=== PATIENT | female | born 1985 | race Caucasian/White ===

== ENCOUNTER 2019-04-06 15:53 | Inpatient (IN) | payer OTHER ==
[~2019-04-06] VITALS: Ht 165.1 cm; Wt 93.9 kg
[~2019-04-06 15:53] MED LIST: CALC1TAB15 PO; DSS100 PO; IBUP-2070 PO; PREN-65 PO
[2019-04-06] MEDS ORDERED: OXYTOCIN 30 UNITS/LACT RINGERS 500 ML IV ONE (16:57)
[2019-04-06] MEDS ORDERED: RINGERS SOLUTION,LACTATED 1,000 ML IV PRN (16:57)
[2019-04-06] MEDS ORDERED: METHYLERGONOVINE MALEATE 0.2 MG/ML VIAL IM PRN (17:00)
[2019-04-06] MEDS ORDERED: FentaNYL CITRATE-PF 100 MCG/2 ML VIAL IVP PRN (17:00)
[2019-04-06] MEDS ORDERED: CITRIC ACID/SODIUM CITRATE 30 ML SOLUTION UDCUP PO PRN (17:00)
[2019-04-06] MEDS ORDERED: TERBUTALINE SULFATE 1 MG/ML VIAL SQ PRN (17:00)
[2019-04-06] MEDS ORDERED: METOCLOPRAMIDE HCL 5 MG/ML 2 ML VIAL IVP PRN (17:00)
[2019-04-06 17:13] VITALS: BP 110/68
[2019-04-06] MEDS ORDERED: DINOPROSTONE 10 MG VAGINAL SUPPOSITORY VG ONE (17:15)
[2019-04-06] MEDS ORDERED: PREN-217 PO (17:15)
[2019-04-06 17:28] LABS: BASOPHILS % (AUTO) 0.4 % (0.0-2.0); EOSINOPHILS % (AUTO) 0.7 % (1.0-6.0); HEMOGLOBIN 12.4 g/dL (12.0-16.0); LYMPHOCYTES # (AUTO) 1.7 K/uL (1.0-4.8); LYMPHOCYTES % (AUTO) 26.3 % (22.0-44.0); MEAN CORPUSCULAR HEMOGLOBIN 29.7 pg (26.0-34.0); MEAN CORPUSCULAR HGB CONC 33.4 G/dL (31.0-37.0); MEAN CORPUSCULAR VOLUME 89 fL (80-100); MONOCYTES # (AUTO) 0.6 K/uL (0.1-1.0); MONOCYTES % (AUTO) 8.7 % (2.0-9.0); NEUTROPHILS # (AUTO) 4.1 K/uL (1.8-7.7); NEUTROPHILS % (AUTO) 63.9 % (40.0-70.0); PLATELET COUNT (AUTO)-OB 150 K/uL (150-450); RED BLOOD CELL COUNT(AUTO) 4.16 MIL/uL (4.00-5.20); RED CELL DISTRIBUTION WIDTH 14.9 % (11.5-14.5)
[2019-04-06] MEDS: RINGERS SOLUTION,LACTATED 1,000 ML IV SCH ×2 (17:44→20:06)
[2019-04-06] MEDS ORDERED: OXYTOCIN 30 UNITS/LACT RINGERS 500 ML IV PRN (17:45)
[2019-04-06] MEDS ORDERED: DOCU-275 PO (18:04)
[2019-04-06] MEDS ORDERED: CALC-916 PO (18:04)
[2019-04-06] MEDS ORDERED: ROPIVACAINE HCL/PF 0.2% 100 ML ED ONE (19:51)
[2019-04-06] MEDS ORDERED: OXYGEN THERAPY IH SCH (20:00)
[2019-04-06] MEDS ORDERED: ROPIVACAINE HCL/PF 0.2% 100 ML ED PRN (20:10)
[2019-04-06] MEDS ORDERED: NALBUPHINE HCL 10 MG/ML VIAL IVP PRN (20:15)
[2019-04-06] MEDS ORDERED: DiphenhydrAMINE HCL 50 MG/ML VIAL IVP PRN (20:15)
[2019-04-06] MEDS ORDERED: ONDANSETRON HCL 4 MG/2 ML VIAL IVP PRN (20:15)
[2019-04-07] MEDS: RINGERS SOLUTION,LACTATED 1,000 ML IV SCH ×2 (02:57→04:21)
[2019-04-07] MEDS ORDERED: MINERAL OIL 30 ML UDCUP VG ONE (05:15)
[2019-04-07] MEDS ORDERED: OXYTOCIN 30 UNITS/LACT RINGERS 500 ML IV ONE (05:33)
[2019-04-07] MEDS ORDERED: CYCLOBENZAPRINE HCL 10 MG TABLET PO PRN (05:45)
[2019-04-07] MEDS ORDERED: GLYCERIN/WITCH HAZEL LEAF 40 PADS JAR TP PRN (05:45)
[2019-04-07] MEDS ORDERED: OxyCODONE HCL/ACETAMINOPHEN 5-325 MG TABLET PO PRN (05:45)
[2019-04-07] MEDS ORDERED: LANOLIN 7 GM OINTMENT TP PRN (05:45)
[2019-04-07] MEDS ORDERED: IBUPROFEN 800 MG TABLET PO PRN (05:45)
[2019-04-07] MEDS ORDERED: BENZOCAINE 20%/MENTHOL 56 GM SPRAY CANISTER TP PRN (05:45)
[2019-04-07] MEDS ORDERED: LIDOCAINE/PF 1% 30 ML VIAL INJ PRN (05:45)
[2019-04-07] MEDS ORDERED: HYDROCODONE/ACETAMINOPHEN 5-325 MG TABLET PO PRN (05:45)
[2019-04-07] MEDS ORDERED: LIDOCAINE/PF 2% 5 ML VIAL ONE (07:00)
[2019-04-07] MEDS ORDERED: ACETAMINOPHEN 1000 MG/ISO-OSM 100 ML IV ONE ×2 (08:40→16:22)
[2019-04-07] MEDS: ACETAMINOPHEN 1000 MG/ISO-OSM 100 ML IV SCH ×2 (08:43→16:23)
[2019-04-07] MEDS ORDERED: MORPHINE SULFATE 10 MG/ML SYRINGE IVP PRN (08:45)
[2019-04-07] MEDS ORDERED: ONDANSETRON HCL 4 MG/2 ML VIAL IVP PRN ×2 (08:45→13:45)
[2019-04-07] MEDS ORDERED: NALOXONE HCL 0.4 MG/ML VIAL IVP PRN (08:45)
[2019-04-07] MEDS ORDERED: FentaNYL CITRATE-PF 100 MCG/2 ML VIAL IVP PRN (08:45)
[2019-04-07] MEDS ORDERED: DiphenhydrAMINE HCL 50 MG/ML VIAL IVP PRN ×2 (08:45→13:45)
[2019-04-07] MEDS ORDERED: NALBUPHINE HCL 10 MG/ML VIAL IVP PRN ×3 (08:45→13:45)
[2019-04-07] MEDS: OxyCODONE HCL/ACETAMINOPHEN 5-325 MG TABLET PO PRN (11:26)
[2019-04-07] MEDS ORDERED: ROPIVACAINE HCL/PF 0.2% 100 ML ED PRN (13:39)
[2019-04-07] MEDS: KETOROLAC TROMETHAMINE 30 MG/ML VIAL IVP SCH ×2 (14:02→21:13)
[2019-04-07] MEDS ORDERED: OXYGEN THERAPY IH SCH ×2 (20:00)
[2019-04-07] MEDS: MAGNESIUM HYDROXIDE SUSPENSION 30 ML UDCUP PO PRN (21:13)
[2019-04-08] MEDS: OxyCODONE HCL/ACETAMINOPHEN 5-325 MG TABLET PO PRN (01:02)
[2019-04-08] MEDS ORDERED: LIDOCAINE/PF 2% 5 ML VIAL IM ONE (04:46)
[2019-04-08] MEDS ORDERED: KETOROLAC TROMETHAMINE 60 MG/2 ML VIAL IM ONE (04:46)
[2019-04-08 05:50] LABS: BASOPHILS % (AUTO) 0.4 % (0.0-2.0); EOSINOPHILS % (AUTO) 0.6 % (1.0-6.0); HEMATOCRIT 32.9 % (36-46); HEMOGLOBIN 11.3 g/dL (12.0-16.0); LYMPHOCYTES # (AUTO) 1.8 K/uL (1.0-4.8); MEAN CORPUSCULAR HEMOGLOBIN 30.1 pg (26.0-34.0); MEAN CORPUSCULAR HGB CONC 34.3 G/dL (31.0-37.0); MEAN CORPUSCULAR VOLUME 88 fL (80-100); MONOCYTES # (AUTO) 0.6 K/uL (0.1-1.0); MONOCYTES % (AUTO) 8.2 % (2.0-9.0); NEUTROPHILS # (AUTO) 5.1 K/uL (1.8-7.7); NEUTROPHILS % (AUTO) 66.8 % (40.0-70.0); PLATELET COUNT (AUTO)-OB 132 K/uL (150-450); RED BLOOD CELL COUNT(AUTO) 3.75 MIL/uL (4.00-5.20); RED CELL DISTRIBUTION WIDTH 15.1 % (11.5-14.5)
[2019-04-08] MEDS ORDERED: ACET-2247 PO (08:30)
[2019-04-08] MEDS ORDERED: PERCT PO (08:34)
[2019-04-08] MEDS: MAGNESIUM HYDROXIDE SUSPENSION 30 ML UDCUP PO PRN (09:09)
[2019-04-08] MEDS ORDERED: MIDAZOLAM HCL 2 MG/2 ML VIAL IVP ONE (10:59)
[2019-04-08] MEDS ORDERED: FentaNYL CITRATE-PF 100 MCG/2 ML VIAL IVP ONE (10:59)
== END 2019-04-08 11:00 | disposition home or self-care (01) | DRG 798 ==
LOC: OBSVTOIN 15:53 → 4S 15:53
PROVIDERS: ADMIT Obstetrics & Gynecology; ATTEND Obstetrics & Gynecology
PROC: 10E0XZZ Delivery of Products of Conception, External Approach (ICD-10-PCS; principal; 2019-04-07)
PROC: 0UB78ZZ Excision of Bilateral Fallopian Tubes, Via Natural or Artificial Opening Endoscopic (ICD-10-PCS; 2019-04-07)
PROC: 3E0R3BZ Introduction of Anesthetic Agent into Spinal Canal, Percutaneous Approach (ICD-10-PCS; 2019-04-07)
PROC: 00HU33Z Insertion of Infusion Device into Spinal Canal, Percutaneous Approach (ICD-10-PCS; 2019-04-07)
DX: O69.81X0 Labor and delivery complicated by cord around neck, without compression, not applicable or unspecified (principal); Z37.0 Single live birth; Z3A.39 39 weeks gestation of pregnancy; Z30.2 Encounter for sterilization
CPT/HCPCS: 86850; 86900; 86901; 88302; J0131; J1885; J2250; J2270; J2590; J2765; J2795; J3010; J3490; J7120